=== PATIENT | female | born 1940 | race Caucasian/White ===

== ENCOUNTER → 2017-04-03 | Outpatient (CLI) | payer MEDICARE | LOC: PETCFH 12:06 | PROVIDERS: ATTEND Specialist | DX: C90.00 Multiple myeloma not having achieved remission (principal); D64.9 Anemia, unspecified | CPT/HCPCS: 78815; A9552 ==

== ENCOUNTER 2017-06-23 15:37 | Inpatient (IN) | payer MEDICARE ==
[~2017-06-23] VITALS: Ht 157.5 cm; Wt 67.6 kg
[~2017-06-23 15:37] MED LIST: CYAN100072 PO; FOLI-17 PO; GABA300C10 PO; MELA10CA PO; METF500T9 PO
[2017-06-23] MEDS ORDERED: SODIUM CHLORIDE 0.9% 1,000ML IVBOLUS ONE (17:00)
[2017-06-23 17:18] LABS: ALANINE AMINOTRANSFERASE 29 U/L (12-78); ALBUMIN 3.6 g/dL (3.4-5.0); ANION GAP 9 mmol/L (5-15); CALCIUM 9.1 mg/dL (8.5-10.1); CHLORIDE 101 mmol/L (98-107); CREATININE 1.35 mg/dL (0.55-1.02)
[2017-06-23 17:22] LABS: ALKALINE PHOSPHATASE 118 U/L (45-117); BILIRUBIN,TOTAL 3.4 mg/dL (0.2-1.0); TOTAL PROTEIN 8.1 g/dL (6.4-8.2); TROPONIN I < 0.015 ng/mL (0.000-0.045)
[2017-06-23] MEDS ORDERED: CEFTRIAXONE PMX 1GM/50ML 50 ML ONE (17:43)
[2017-06-23] MEDS ORDERED: CEFTRIAXONE PMX 1GM/50ML 50 ML IV ONE ×2 (18:00→20:30)
[2017-06-23] MEDS ORDERED: AZITHROMYCIN 500 MG in SODIUM CHLORIDE 0.9% 250 ML IV ONE ×2 (18:00→19:00)
[2017-06-23 18:01] LABS: CULTURE INDICATED? YES; MICROSCOPIC INDICATED
[2017-06-23 18:02] LABS: MEAN CORPUSCULAR HEMOGLOBIN 36.7 pg (27.0-34.8); MEAN CORPUSCULAR HGB CONC 35.9 g/dL (32.4-35.8); MEAN CORPUSCULAR VOLUME 102.2 fL (80-100); MEAN PLATELET VOLUME 7.9 fL (7.4-10.4); PLATELET COUNT 388 x10^3/uL (130-400); RED BLOOD COUNT 2.42 x10^6/uL (3.82-5.3); RED CELL DISTRIBUTION WIDTH 14.3 % (9.6-15.2)
[2017-06-23] MEDS ORDERED: ACETAMINOPHEN 500 MG TABLET ONE (18:20)
[2017-06-23] MEDS ORDERED: ACETAMINOPHEN 500 MG TABLET PO ONE ×2 (18:30)
[2017-06-23 18:48] LABS: MD YES
[2017-06-23 18:52] LABS: BAND#(MANUAL) 0.23 x10^3/uL; BANDS%(MANUAL) 1 % (0-7); EOS#(MANUAL) 0.23 x10^3/uL (0.0-0.4); EOS% (MANUAL) 1 % (1-7); LYMPH#(MANUAL) 2.48 x10^3/uL (1-3.4); LYMPHS% (MANUAL) 11 % (22-44); MONOS#(MANUAL) 1.35 x10^3/uL (0.3-2.7); MONOS% (MANUAL) 6 % (2-9); SEGS% (MANUAL) 81 % (42-75)
[2017-06-23 18:53] LABS: ANISOCYTOSIS 1+
[2017-06-23 18:54] LABS: ROULEAUX 1+
[2017-06-23 18:55] LABS: <PLATELET ESTIMATE> ADEQUATE; LARGE PLATELETS 1+; POLYCHROMASIA 1+
[2017-06-23] MEDS ORDERED: LABETALOL 5MG/ML, 20ML IVPush PRN (20:30)
[2017-06-23] MEDS ORDERED: ONDANSETRON 2MG/ML, 2ML IVPush PRN (20:30)
[2017-06-23] MEDS ORDERED: hydrALAzine 20 MG/ML, 1ML IVPush PRN (20:30)
[2017-06-23] MEDS ORDERED: morphine SULFATE 10 MG/ML, 1ML IVPush PRN (20:30)
[2017-06-23] MEDS ORDERED: BISACODYL 10 MG SUPP PR PRN (20:30)
[2017-06-23] MEDS ORDERED: DOCUSATE 100 MG CAPSULE PO PRN (20:30)
[2017-06-23 20:51] VITALS: BP 105/60
[2017-06-23 21:09] LABS: FREE T4 (FREE THYROXINE) 1.27 ng/dL (0.76-1.46); THYROID STIMULATING HORMONE 0.744 mIU/L (0.358-3.740)
[2017-06-24] VITALS (7 sets, daily range): BP systolic 96–115; BP diastolic 53–68
[2017-06-24] MEDS: MELATONIN 5 MG TABLET PO SCH ×2 (00:20→21:57)
[2017-06-24] MEDS: GUAIFENESIN ER 600 MG TABLET PO SCH ×3 (00:20→21:57)
[2017-06-24] MEDS: OXYcodone IR 5MG TABLET PO PRN (00:36)
[2017-06-24] MEDS: ACETAMINOPHEN 325 MG TABLET PO PRN ×2 (00:36→15:04)
[2017-06-24] MEDS: HEPARIN 5,000 UNITS/ML, 1ML SQ SCH ×3 (00:38→17:32)
[2017-06-24] MEDS: INSULIN LISPRO 100 UNITS/ML, PEN SQ-INSULIN SCH ×5 (00:38→21:57)
[2017-06-24] MEDS: SODIUM CHLORIDE 0.9% 1,000 ML IV SCH ×2 (00:39→08:28)
[2017-06-24 07:40] LABS: ALBUMIN 2.8 g/dL (3.4-5.0); ANION GAP 6 mmol/L (5-15); CHLORIDE 106 mmol/L (98-107)
[2017-06-24 07:43] LABS: ALANINE AMINOTRANSFERASE 23 U/L (12-78); ALKALINE PHOSPHATASE 93 U/L (45-117); BILIRUBIN,TOTAL 2.2 mg/dL (0.2-1.0); CHOLESTEROL, TOTAL 74 mg/dL (140-239); HDL CHOL % 50 % (28-40); HDL CHOLESTEROL (DIRECT) 37 mg/dL (40-60); LDL CHOLESTEROL,CALCULATED 24 mg/dL (54-169); LDL/HDL RATIO 0.6 (0.5-3.0); TOTAL PROTEIN 6.5 g/dL (6.4-8.2); TRIGLYCERIDES 65 mg/dL (50-200); VLDL CHOLESTEROL 13 mg/dL (0-25)
[2017-06-24] MEDS: CYANOCOBALAMIN 1,000 MCG TABLET PO SCH (08:31)
[2017-06-24] MEDS: FOLIC ACID 1 MG TABLET PO SCH (08:31)
[2017-06-24] MEDS: GABAPENTIN 300 MG CAPSULE PO SCH (08:31)
[2017-06-24 08:40] LABS: MEAN CORPUSCULAR HEMOGLOBIN 34.3 pg (27.0-34.8); MEAN CORPUSCULAR HGB CONC 35.4 g/dL (32.4-35.8); MEAN CORPUSCULAR VOLUME 96.9 fL (80-100); MEAN PLATELET VOLUME 8.6 fL (7.4-10.4); PLATELET COUNT 321 x10^3/uL (130-400); RED BLOOD COUNT 2.06 x10^6/uL (3.82-5.3); RED CELL DISTRIBUTION WIDTH 13.1 % (9.6-15.2)
[2017-06-24 08:43] LABS: MD YES
[2017-06-24 08:46] LABS: EOS#(MANUAL) 0.17 x10^3/uL (0.0-0.4); EOS% (MANUAL) 1 % (1-7); LYMPH#(MANUAL) 2.72 x10^3/uL (1-3.4); LYMPHS% (MANUAL) 16 % (22-44); MONOS#(MANUAL) 1.53 x10^3/uL (0.3-2.7); MONOS% (MANUAL) 9 % (2-9); SEG#(MANUAL) 12.58 x10^3/uL (1.8-6.8); SEGS% (MANUAL) 74 % (42-75)
[2017-06-24 08:48] LABS: <PLATELET ESTIMATE> ADEQUATE; ANISOCYTOSIS 1+; POLYCHROMASIA 1+
[2017-06-24 08:49] LABS: LARGE PLATELETS 1+; ROULEAUX 1+
[2017-06-24] MEDS ORDERED: MAGNESIUM SULFATE PMX 2GM/50ML 50 ML IV ONE (10:30)
[2017-06-24] MEDS ORDERED: ALBUTEROL/IPRATROPIUM 2.5MG/0.5MG, 3 ML ONE (11:13)
[2017-06-24] MEDS ORDERED: ALBUTEROL/IPRATROPIUM 2.5MG/0.5MG, 3 ML NPPB ONE (11:45)
[2017-06-24] MEDS: POLYETHYLENE GLYCOL 17 GM PACKET PO PRN (15:03)
[2017-06-24] MEDS: CEFTRIAXONE PMX 2GM/50ML 50 ML IV SCH (15:49)
[2017-06-24 16:34] LABS: ABSOLUTE RETICS # 0.083 x10^6/uL (0.5-2.5); RETICULOCYTE COUNT % 4.83 % (0.5-1.5)
[2017-06-24 17:16] LABS: RED BLOOD COUNT 1.86 x10^6/uL (3.82-5.3)
[2017-06-24] MEDS: AZITHROMYCIN 500 MG in SODIUM CHLORIDE 0.9% 250 ML IV SCH (17:28)
[2017-06-25] MEDS: HEPARIN 5,000 UNITS/ML, 1ML SQ SCH ×3 (00:59→16:12)
[2017-06-25] MEDS: ACETAMINOPHEN 325 MG TABLET PO PRN ×2 (01:00→10:49)
[2017-06-25] MEDS: OXYcodone IR 5MG TABLET PO PRN (01:00)
[2017-06-25 01:38] VITALS: BP 97/59
[2017-06-25] MEDS: INSULIN LISPRO 100 UNITS/ML, PEN SQ-INSULIN SCH ×4 (06:26→22:32)
[2017-06-25 07:26] VITALS: BP 101/64
[2017-06-25] MEDS: SENNA/DOCUSATE TABLET PO SCH (08:56)
[2017-06-25] MEDS: POLYETHYLENE GLYCOL 17 GM PACKET PO PRN (08:56)
[2017-06-25] MEDS: GABAPENTIN 300 MG CAPSULE PO SCH (08:56)
[2017-06-25] MEDS: GUAIFENESIN ER 600 MG TABLET PO SCH ×2 (08:56→22:31)
[2017-06-25] MEDS: FOLIC ACID 1 MG TABLET PO SCH (08:57)
[2017-06-25] MEDS: CYANOCOBALAMIN 1,000 MCG TABLET PO SCH (08:59)
[2017-06-25 09:20] LABS: ALANINE AMINOTRANSFERASE 25 U/L (12-78); ALBUMIN 2.9 g/dL (3.4-5.0); ANION GAP 6 mmol/L (5-15); CALCIUM 8.3 mg/dL (8.5-10.1); CHLORIDE 107 mmol/L (98-107); CREATININE 0.98 mg/dL (0.55-1.02)
[2017-06-25 09:22] LABS: ALKALINE PHOSPHATASE 117 U/L (45-117); BILIRUBIN,TOTAL 1.2 mg/dL (0.2-1.0); TOTAL PROTEIN 6.8 g/dL (6.4-8.2)
[2017-06-25] MEDS ORDERED: SCOPOLAMINE PATCH, 1.5MG PATCH.TD72 TD ONE (09:31)
[2017-06-25 10:06] LABS: MEAN CORPUSCULAR HEMOGLOBIN 34.4 pg (27.0-34.8); MEAN CORPUSCULAR HGB CONC 35.1 g/dL (32.4-35.8); MEAN PLATELET VOLUME 8.6 fL (7.4-10.4); PLATELET COUNT 331 x10^3/uL (130-400); RED BLOOD COUNT 2.12 x10^6/uL (3.82-5.3)
[2017-06-25 10:12] LABS: HEMOGRAM NOTE RECHECKED
[2017-06-25 10:15] LABS: BASOPHILS # (AUTO) 0.34 x10^3/uL (0-0.1); BASOPHILS % (AUTO) 3 % (0-1); EOSINOPHILS # (AUTO) 0.24 x10^3/uL (0-0.4); EOSINOPHILS % (AUTO) 2 % (1-7); LYMPHOCYTES # (AUTO) 2.02 x10^3/uL (1-3.4); LYMPHOCYTES % (AUTO) 18 % (22-44); MD MORPH REVIEW ONLY; MONOCYTES # (AUTO) 1.02 x10^3/uL (0.2-0.8); MONOCYTES % (AUTO) 9 % (2-9); NEUTROPHILS # (AUTO) 7.52 x10^3/uL (1.8-6.8); NEUTROPHILS % (AUTO) 68 % (42-75)
[2017-06-25 10:16] LABS: <PLATELET ESTIMATE> ADEQUATE; <PLT MORPHOLOGY> NORMAL PLT MORPH; POLYCHROMASIA 1+
[2017-06-25 14:17] VITALS: BP 97/69
[2017-06-25] MEDS: CEFTRIAXONE PMX 2GM/50ML 50 ML IV SCH (16:12)
[2017-06-25] MEDS: AZITHROMYCIN 500 MG in SODIUM CHLORIDE 0.9% 250 ML IV SCH (17:14)
[2017-06-25 18:48] LABS: ABSOLUTE RETICS # 0.012 x10^6/uL (0.5-2.5); RETICULOCYTE COUNT % 4.05 % (0.5-1.5)
[2017-06-25 19:47] LABS: RED BLOOD COUNT 2.32 x10^6/uL (3.82-5.3)
[2017-06-25 21:31] VITALS: BP 102/52
[2017-06-25] MEDS: MELATONIN 5 MG TABLET PO SCH (22:32)
[2017-06-26] MEDS: HEPARIN 5,000 UNITS/ML, 1ML SQ SCH ×3 (01:12→16:17)
[2017-06-26] MEDS: OXYcodone IR 5MG TABLET PO PRN (01:13)
[2017-06-26] MEDS: ACETAMINOPHEN 325 MG TABLET PO PRN (01:13)
[2017-06-26 03:06] VITALS: BP 91/45
[2017-06-26 04:58] LABS: MEAN CORPUSCULAR HEMOGLOBIN 32.2 pg (27.0-34.8); MEAN CORPUSCULAR HGB CONC 33.9 g/dL (32.4-35.8); MEAN CORPUSCULAR VOLUME 95.2 fL (80-100); MEAN PLATELET VOLUME 7.7 fL (7.4-10.4); PLATELET COUNT 381 x10^3/uL (130-400); RED BLOOD COUNT 2.16 x10^6/uL (3.82-5.3); RED CELL DISTRIBUTION WIDTH 14.2 % (9.6-15.2)
[2017-06-26 05:10] LABS: ALBUMIN 2.7 g/dL (3.4-5.0); ANION GAP 5 mmol/L (5-15); CALCIUM 8.4 mg/dL (8.5-10.1); CHLORIDE 106 mmol/L (98-107)
[2017-06-26 05:15] LABS: ALANINE AMINOTRANSFERASE 20 U/L (12-78); ALKALINE PHOSPHATASE 128 U/L (45-117); BILIRUBIN,TOTAL 0.7 mg/dL (0.2-1.0); CREATININE 0.86 mg/dL (0.55-1.02); TOTAL PROTEIN 6.4 g/dL (6.4-8.2)
[2017-06-26 05:33] LABS: BASOPHILS # (AUTO) 0.06 x10^3/uL (0-0.1); BASOPHILS % (AUTO) 1 % (0-1); EOSINOPHILS # (AUTO) 0.32 x10^3/uL (0-0.4); EOSINOPHILS % (AUTO) 3 % (1-7); LYMPHOCYTES % (AUTO) 23 % (22-44); MD NO; MONOCYTES # (AUTO) 0.94 x10^3/uL (0.2-0.8); MONOCYTES % (AUTO) 8 % (2-9); NEUTROPHILS # (AUTO) 7.27 x10^3/uL (1.8-6.8); NEUTROPHILS % (AUTO) 65 % (42-75)
[2017-06-26] MEDS: INSULIN LISPRO 100 UNITS/ML, PEN SQ-INSULIN SCH ×4 (06:39→22:30)
[2017-06-26 08:35] VITALS: BP 100/52
[2017-06-26] MEDS: CYANOCOBALAMIN 1,000 MCG TABLET PO SCH (09:12)
[2017-06-26] MEDS: FOLIC ACID 1 MG TABLET PO SCH (09:12)
[2017-06-26] MEDS: GABAPENTIN 300 MG CAPSULE PO SCH (09:12)
[2017-06-26] MEDS: GUAIFENESIN ER 600 MG TABLET PO SCH ×2 (09:12→22:29)
[2017-06-26] MEDS: SENNA/DOCUSATE TABLET PO SCH (09:12)
[2017-06-26] MEDS ORDERED: SODIUM CHLORIDE 0.9% 1,000 ML IV SCH (13:47)
[2017-06-26 15:17] VITALS: BP 101/58
[2017-06-26] MEDS: CEFTRIAXONE PMX 2GM/50ML 50 ML IV SCH (16:17)
[2017-06-26] MEDS: AZITHROMYCIN 500 MG in SODIUM CHLORIDE 0.9% 250 ML IV SCH (17:07)
[2017-06-26] MEDS ORDERED: GUAIFENESIN/COD200MG-20MG/10ML LIQUID PO SCH (21:00)
[2017-06-26 21:43] VITALS: BP 102/51
[2017-06-26] MEDS: MELATONIN 5 MG TABLET PO SCH (22:30)
[2017-06-27] VITALS (10 sets, daily range): BP systolic 101–147; BP diastolic 60–87
[2017-06-27] MEDS: HEPARIN 5,000 UNITS/ML, 1ML SQ SCH ×3 (00:31→16:00)
[2017-06-27] MEDS: ACETAMINOPHEN 325 MG TABLET PO PRN (03:44)
[2017-06-27 05:30] LABS: ALBUMIN 2.6 g/dL (3.4-5.0); ANION GAP 5 mmol/L (5-15); CALCIUM 8.6 mg/dL (8.5-10.1); CHLORIDE 109 mmol/L (98-107)
[2017-06-27 05:34] LABS: ALANINE AMINOTRANSFERASE 18 U/L (12-78); ALKALINE PHOSPHATASE 119 U/L (45-117); BILIRUBIN,TOTAL 0.7 mg/dL (0.2-1.0); CREATININE 0.95 mg/dL (0.55-1.02); TOTAL PROTEIN 6.2 g/dL (6.4-8.2)
[2017-06-27 05:58] LABS: MEAN CORPUSCULAR HEMOGLOBIN 33.3 pg (27.0-34.8); MEAN CORPUSCULAR HGB CONC 34.9 g/dL (32.4-35.8); MEAN CORPUSCULAR VOLUME 95.6 fL (80-100); MEAN PLATELET VOLUME 7.6 fL (7.4-10.4); PLATELET COUNT 419 x10^3/uL (130-400); RED BLOOD COUNT 2.11 x10^6/uL (3.82-5.3); RED CELL DISTRIBUTION WIDTH 14.1 % (9.6-15.2)
[2017-06-27 06:29] LABS: MD YES
[2017-06-27 06:31] LABS: BASOS#(MANUAL) 0.09 x10^3/uL (0-0.1); BASOS% (MANUAL) 1 % (0-1); EOS#(MANUAL) 0.26 x10^3/uL (0.0-0.4); EOS% (MANUAL) 3 % (1-7); LYMPH#(MANUAL) 3.08 x10^3/uL (1-3.4); LYMPHS% (MANUAL) 35 % (22-44); METAMYELOCYTES# (MANUAL) 0.18 x10^3/uL (0-0); METAMYELOCYTES% (MANUAL) 2 % (0-1); MONOS#(MANUAL) 0.44 x10^3/uL (0.3-2.7); MONOS% (MANUAL) 5 % (2-9); SEG#(MANUAL) 4.75 x10^3/uL (1.8-6.8); SEGS% (MANUAL) 54 % (42-75)
[2017-06-27 06:32] LABS: <PLATELET ESTIMATE> INCREASED; <PLT MORPHOLOGY> NORMAL PLT MORPH; POLYCHROMASIA 1+
[2017-06-27] MEDS: INSULIN LISPRO 100 UNITS/ML, PEN SQ-INSULIN SCH ×4 (07:00→21:04)
[2017-06-27] MEDS: SENNA/DOCUSATE TABLET PO SCH (09:00)
[2017-06-27] MEDS: CYANOCOBALAMIN 1,000 MCG TABLET PO SCH (09:05)
[2017-06-27] MEDS: GABAPENTIN 300 MG CAPSULE PO SCH (09:05)
[2017-06-27] MEDS: GUAIFENESIN ER 600 MG TABLET PO SCH ×2 (09:06→21:03)
[2017-06-27] MEDS: FOLIC ACID 1 MG TABLET PO SCH (09:07)
[2017-06-27] MEDS ORDERED: morphine SULFATE 10 MG/ML, 1ML IVPush PRN (21:00)
[2017-06-27] MEDS ORDERED: ONDANSETRON 2MG/ML, 2ML IVPush PRN (21:00)
[2017-06-27] MEDS ORDERED: hydrALAzine 20 MG/ML, 1ML IVPush PRN (21:00)
[2017-06-27] MEDS ORDERED: BISACODYL 10 MG SUPP PR PRN (21:00)
[2017-06-27] MEDS ORDERED: LABETALOL 5MG/ML, 20ML IVPush PRN (21:00)
[2017-06-27] MEDS ORDERED: GUAIFENESIN ER 600 MG TABLET PO SCH (21:00)
[2017-06-27] MEDS ORDERED: POLYETHYLENE GLYCOL 17 GM PACKET PO PRN (21:00)
[2017-06-27] MEDS ORDERED: ACETAMINOPHEN 325 MG TABLET PO PRN (21:00)
[2017-06-27] MEDS: CEFTRIAXONE PMX 2GM/50ML 50 ML IV SCH (21:04)
[2017-06-27] MEDS: MELATONIN 5 MG TABLET PO SCH (21:31)
[2017-06-27] MEDS: AZITHROMYCIN 500 MG in SODIUM CHLORIDE 0.9% 250 ML IV SCH (21:53)
[2017-06-28 00:59] VITALS: BP 112/69
[2017-06-28] MEDS: INSULIN LISPRO 100 UNITS/ML, PEN SQ-INSULIN SCH (07:00)
[2017-06-28] MEDS: CYANOCOBALAMIN 1,000 MCG TABLET PO SCH (07:51)
[2017-06-28] MEDS: GUAIFENESIN ER 600 MG TABLET PO SCH ×3 (07:51→20:39)
[2017-06-28] MEDS: FOLIC ACID 1 MG TABLET PO SCH (07:51)
[2017-06-28] MEDS: SENNA/DOCUSATE TABLET PO SCH (07:51)
[2017-06-28] MEDS: GABAPENTIN 300 MG CAPSULE PO SCH (07:51)
[2017-06-28 08:23] VITALS: BP 123/78
[2017-06-28] MEDS: GLIMEPIRIDE 1 MG TABLET PO SCH (14:19)
[2017-06-28 14:45] VITALS: BP 110/72
[2017-06-28 19:12] VITALS: BP 112/70
[2017-06-28] MEDS: CEFTRIAXONE PMX 2GM/50ML 50 ML IV SCH (20:38)
[2017-06-28] MEDS: MELATONIN 5 MG TABLET PO SCH (20:39)
[2017-06-28] MEDS: AZITHROMYCIN 500 MG in SODIUM CHLORIDE 0.9% 250 ML IV SCH (21:24)
[2017-06-29 00:53] VITALS: BP 114/63
[2017-06-29 04:23] LABS: ALANINE AMINOTRANSFERASE 28 U/L (12-78); ALBUMIN 2.9 g/dL (3.4-5.0); ANION GAP 7 mmol/L (5-15); CALCIUM 8.9 mg/dL (8.5-10.1); CHLORIDE 107 mmol/L (98-107); CREATININE 0.88 mg/dL (0.55-1.02)
[2017-06-29 04:26] LABS: ALKALINE PHOSPHATASE 127 U/L (45-117); BILIRUBIN,TOTAL 0.6 mg/dL (0.2-1.0); TOTAL PROTEIN 6.6 g/dL (6.4-8.2)
[2017-06-29 05:10] LABS: BASOPHILS # (AUTO) 0.07 x10^3/uL (0-0.1); BASOPHILS % (AUTO) 1 % (0-1); EOSINOPHILS # (AUTO) 0.39 x10^3/uL (0-0.4); EOSINOPHILS % (AUTO) 4 % (1-7); LYMPHOCYTES # (AUTO) 2.66 x10^3/uL (1-3.4); LYMPHOCYTES % (AUTO) 28 % (22-44); MD NO; MEAN CORPUSCULAR HEMOGLOBIN 32.9 pg (27.0-34.8); MEAN CORPUSCULAR HGB CONC 34.8 g/dL (32.4-35.8); MEAN CORPUSCULAR VOLUME 94.5 fL (80-100); MEAN PLATELET VOLUME 7.6 fL (7.4-10.4); MONOCYTES % (AUTO) 8 % (2-9); NEUTROPHILS # (AUTO) 5.58 x10^3/uL (1.8-6.8); NEUTROPHILS % (AUTO) 59 % (42-75); PLATELET COUNT 462 x10^3/uL (130-400); RED BLOOD COUNT 3.01 x10^6/uL (3.82-5.3); RED CELL DISTRIBUTION WIDTH 15.3 % (9.6-15.2)
[2017-06-29 07:15] VITALS: BP 117/76
[2017-06-29] MEDS ORDERED: POLY17PO5 PO (07:16)
[2017-06-29] MEDS ORDERED: GUAI600T31 PO (07:16)
[2017-06-29] MEDS ORDERED: CEFD300C37 PO (07:16)
[2017-06-29] MEDS ORDERED: AZIT500T PO (07:16)
[2017-06-29] MEDS: SENNA/DOCUSATE TABLET PO SCH (09:00)
[2017-06-29] MEDS: CYANOCOBALAMIN 1,000 MCG TABLET PO SCH (09:51)
[2017-06-29] MEDS: FOLIC ACID 1 MG TABLET PO SCH (09:51)
[2017-06-29] MEDS: GLIMEPIRIDE 1 MG TABLET PO SCH (09:51)
[2017-06-29] MEDS: GUAIFENESIN ER 600 MG TABLET PO SCH (09:51)
[2017-06-29] MEDS: GABAPENTIN 300 MG CAPSULE PO SCH (09:51)
== END 2017-06-29 10:56 | disposition home or self-care (01) | DRG 871 ==
LOC: ED 18:01 → EDIP 18:27 → 4NOR 19:40 → UNDODISIN 06-27 13:43 → 3NW 06-27 13:57 → DCLOUNGE 06-29 10:41
PROVIDERS: ADMIT Internal Medicine; ATTEND Internal Medicine
PROC: 30233N1 Transfusion of Nonautologous Red Blood Cells into Peripheral Vein, Percutaneous Approach (ICD-10-PCS; principal; 2017-06-24)
DX: A41.9 Sepsis, unspecified organism (principal); N17.0 Acute kidney failure with tubular necrosis; E43 Unspecified severe protein-calorie malnutrition; J18.1 Lobar pneumonia, unspecified organism; D59.1 Other autoimmune hemolytic anemias; E87.2 Acidosis; D53.9 Nutritional anemia, unspecified; E11.9 Type 2 diabetes mellitus without complications; E83.42 Hypomagnesemia; E87.1 Hypo-osmolality and hyponatremia; N39.0 Urinary tract infection, site not specified; E78.5 Hyperlipidemia, unspecified; I10 Essential (primary) hypertension; K59.00 Constipation, unspecified; D47.3 Essential (hemorrhagic) thrombocythemia; G47.9 Sleep disorder, unspecified; Z68.27 Body mass index [BMI] 27.0-27.9, adult; Z79.899 Other long term (current) drug therapy
CPT/HCPCS: 36415; 36430; 71045; 71046; 80053; 80061; 81001; 82784; 82962; 83010; 83036; 83605; 83615; 83735; 84100; 84145; 84155; 84165; 84439; 84443; 84484; 84550; 85014; 85018; 85025; 85045; 86850; 86880; 86900; 86902; 86923; 87040; 87070; 87086; 87147; 87205; 93005; 94640; 96361; 96365; J0456; J0696; J1644; J7620; J3475; J7030; J7050; P9016; P9040

== ENCOUNTER 2017-08-26 08:17 | Emergency (ER) | payer MEDICARE ==
[~2017-08-26] VITALS: Ht 157.5 cm; Wt 64.0 kg
[~2017-08-26 08:17] MED LIST changes: +AZIT500T PO; +CEFD300C37 PO; +GUAI600T31 PO; +POLY17PO5 PO
[2017-08-26 08:21] VITALS: BP 130/72
[2017-08-26 09:18] LABS: ALBUMIN 3.7 g/dL (3.4-5.0); ANION GAP 6 mmol/L (5-15); CALCIUM 8.9 mg/dL (8.5-10.1); CHLORIDE 109 mmol/L (98-107); CREATININE 0.91 mg/dL (0.55-1.02)
[2017-08-26 10:01] LABS: BASOPHILS # (AUTO) 0.08 x10^3/uL (0-0.1); BASOPHILS % (AUTO) 1 % (0-1); EOSINOPHILS % (AUTO) 3 % (1-7); LYMPHOCYTES # (AUTO) 1.25 x10^3/uL (1-3.4); LYMPHOCYTES % (AUTO) 17 % (22-44); MD NO; MEAN CORPUSCULAR HEMOGLOBIN 33.6 pg (27.0-34.8); MEAN PLATELET VOLUME 8.4 fL (7.4-10.4); MONOCYTES # (AUTO) 0.38 x10^3/uL (0.2-0.8); MONOCYTES % (AUTO) 5 % (2-9); NEUTROPHILS % (AUTO) 74 % (42-75); PLATELET COUNT 377 x10^3/uL (130-400); RED BLOOD COUNT 2.55 x10^6/uL (3.82-5.3)
== END 2017-08-26 10:23 | disposition home or self-care (01) ==
LOC: ED 10:17
DX: J00 Acute nasopharyngitis [common cold] (principal); I10 Essential (primary) hypertension; E11.9 Type 2 diabetes mellitus without complications
CPT/HCPCS: 36415; 71046; 80048; 82040; 85025; 99285

== ENCOUNTER 2018-06-09 07:16 | Day surgery (SDC) | payer MEDICARE ==
[~2018-06-09] VITALS: Ht 157.5 cm; Wt 69.0 kg
[2018-06-09 08:01] VITALS: BP 135/75
[2018-06-09] MEDS ORDERED: SODIUM CHLORIDE 0.9% 1,000 ML IV SCH (08:03)
[2018-06-09] MEDS ORDERED: CEFAZOLIN 1,000 MG IM ONE (08:04)
[2018-06-09] MEDS ORDERED: CEFAZOLIN PMX 1GM/50ML 50 ML ONE (08:19)
[2018-06-09] MEDS ORDERED: CEFAZOLIN PMX 1GM/50ML 50 ML IV ONE (08:30)
[2018-06-09] MEDS ORDERED: FLUMAZENIL 0.1 MG/1 ML, 5ML ONE (09:01)
[2018-06-09] MEDS ORDERED: FENTANYL PF 100 MCG/2ML ONE (09:01)
[2018-06-09] MEDS ORDERED: MIDAZOLAM 1 MG/ML, 5ML ONE (09:01)
[2018-06-09] MEDS ORDERED: LIDOCAINE 1%, 20ML ONE (09:02)
[2018-06-09] MEDS ORDERED: NALOXONE 1 MG/ML, 2ML ONE (09:02)
== END 2018-06-09 12:00 | disposition home or self-care (01) ==
LOC: OUT 07:16
PROVIDERS: ATTEND Specialist
DX: Z45.2 Encounter for adjustment and management of vascular access device (principal); C83.31 Diffuse large B-cell lymphoma, lymph nodes of head, face, and neck; D89.1 Cryoglobulinemia; D59.9 Acquired hemolytic anemia, unspecified; I10 Essential (primary) hypertension; E11.9 Type 2 diabetes mellitus without complications; E78.5 Hyperlipidemia, unspecified; Z87.891 Personal history of nicotine dependence
CPT/HCPCS: 36561; 76937; 77001; 99156; 99157; C1788; J0690; J1642; J2250; J3010; J7030; J2310

== ENCOUNTER → 2019-05-12 | Outpatient (CLI) | payer MEDICARE, OTHER ==
[~2019-05-12] MED LIST changes: +ACET325T14 PO; +AMOX1TAB64 PO; +AZIT250T PO; +METF500T12 PO; -METF500T9 PO; +ONDA4TAB7 PO; +ONDA8TAB9 PO
== END | disposition home or self-care (01) ==
LOC: RAD 12:13
PROVIDERS: ATTEND Specialist
DX: Z51.11 Encounter for antineoplastic chemotherapy (principal); Z51.12 Encounter for antineoplastic immunotherapy; C88.0 Waldenstrom macroglobulinemia; C85.80 Other specified types of non-Hodgkin lymphoma, unspecified site; D59.9 Acquired hemolytic anemia, unspecified; D64.9 Anemia, unspecified; D89.1 Cryoglobulinemia; D70.1 Agranulocytosis secondary to cancer chemotherapy; Z79.899 Other long term (current) drug therapy
CPT/HCPCS: 71046

== ENCOUNTER → 2019-05-25 | Outpatient (CLI) | payer MEDICARE | END | disposition home or self-care (01) | LOC: RAD 11:17 | PROVIDERS: ATTEND Specialist | DX: Z51.11 Encounter for antineoplastic chemotherapy (principal); Z51.12 Encounter for antineoplastic immunotherapy; C85.80 Other specified types of non-Hodgkin lymphoma, unspecified site; C88.0 Waldenstrom macroglobulinemia; D59.9 Acquired hemolytic anemia, unspecified; D64.9 Anemia, unspecified; D47.2 Monoclonal gammopathy; D70.1 Agranulocytosis secondary to cancer chemotherapy; Z79.899 Other long term (current) drug therapy | CPT/HCPCS: 71046 ==